=== PATIENT | female | born 1945 | race Caucasian/White ===

== ENCOUNTER 2019-04-08 20:03 | Emergency (ER) | payer MEDICARE, BC ==
[~2019-04-08] VITALS: Ht 149.9 cm; Wt 71.0 kg
[2019-04-08] MEDS ORDERED: TETanus/Pertussis (Acell)/Diphther VAC/PF (Tdap-Adult) 0.5ml syringe IM ONE (21:20)
[2019-04-08] MEDS ORDERED: LIDOcaine 1% w/epiNEPHrine 1:200,000 30ml vial IM ONE (21:20)
[2019-04-08 22:56] VITALS: BP 147/87
== END 2019-04-08 23:00 | disposition home or self-care (01) ==
LOC: ER 20:05
DX: S01.81XA Laceration without foreign body of other part of head, initial encounter (principal); Z86.73 Personal history of transient ischemic attack (TIA), and cerebral infarction without residual deficits; Z90.710 Acquired absence of both cervix and uterus; Z98.890 Other specified postprocedural states; W01.198A Fall on same level from slipping, tripping and stumbling with subsequent striking against other object, initial encounter; Y93.89 Activity, other specified; Y92.89 Other specified places as the place of occurrence of the external cause; Y99.8 Other external cause status
CPT/HCPCS: 12013; 70450; 90471; 90715; 99284; J3490; 12002

== ENCOUNTER 2019-12-30 12:57 | Emergency (ER) | payer MEDICARE, BC ==
[~2019-12-30] VITALS: Ht 149.9 cm; Wt 71.0 kg
[2019-12-30 13:05] VITALS: BP 117/68
[2019-12-30] MEDS ORDERED: ipratropium/albuterol 3ml nebule NEB ONE (14:35)
[2019-12-30] MEDS ORDERED: predniSONE 20 mg tablet PO ONE (14:35)
--- NOTE | 2019-12-30 14:40 | NUR ---
PAGE SENT FOR RT
[2019-12-30 14:56] LABS: BASOPHILS % (AUTO) 0.2 % (0-1); EOSINOPHILS # (AUTO) 0.2 X10'3 (0-0.9); EOSINOPHILS % (AUTO) 2.4 % (0-6); HEMOGLOBIN 13.3 g/dl (12.0-16.0); LYMPHOCYTES # (AUTO) 2.1 X10'3 (1.1-4.8); LYMPHOCYTES % (AUTO) 29.1 % (21-51); MEAN CORPUSCULAR HEMOGLOBIN 32.5 PG (27.0-31.0); MEAN CORPUSCULAR HGB CONC 33.3 g/dL (33.0-36.5); MEAN CORPUSCULAR VOLUME 97.4 FL (78-98); MEAN PLATELET VOLUME 8.1 FL (7.4-10.4); MONOCYTES # (AUTO) 0.7 X10'3 (0-0.9); MONOCYTES % (AUTO) 10.2 % (2-12); NEUTROPHILS # (AUTO) 4.3 X10'3 (1.8-7.7); NEUTROPHILS % (AUTO) 58.1 % (42-75); PLATELET COUNT 212 X10'3 (140-440); RED CELL DISTRIBUTION WIDTH 13.1 % (11.5-14.5); WHITE BLOOD COUNT 7.3 X10'3 (4.5-11.0)
[2019-12-30 15:10] LABS: PARTIAL THROMBOPLASTIN TIME 34 SECONDS (22-32)
[2019-12-30] MEDS ORDERED: ALBU8HFA PO (15:12)
[2019-12-30] MEDS ORDERED: GUAI-647 PO (15:12)
[2019-12-30] MEDS ORDERED: PRED20TA PO (15:12)
[2019-12-30 15:22] LABS: ALANINE AMINOTRANSFERASE 29 U/L (12-78); ALBUMIN 3.1 G/DL (3.4-5.0); ALBUMIN/GLOBULIN RATIO 0.8 (1.1-1.5); ALKALINE PHOSPHATASE 146 IU/L (46-116); ANION GAP 8 (8-16); ASPARTATE AMINO TRANSFERASE 29 U/L (10-37); BILIRUBIN,TOTAL 0.4 MG/DL (0.1-1.0); BLOOD UREA NITROGEN 16 MG/DL (7-18); BUN/CREATININE RATIO 15.1 (6.6-38.0); CALCIUM 8.8 MG/DL (8.5-10.1); CHLORIDE 106 MMOL/L (99-107); CREATININE 1.06 MG/DL (0.40-0.90); GLUCOSE 109 MG/DL (70-104); POTASSIUM 4.6 MMOL/L (3.5-5.1); SODIUM 140 MMOL/L (135-145); TOTAL CARBON DIOXIDE 25.8 MMOL/L (24-32); TOTAL PROTEIN 7.2 G/DL (6.4-8.2); eGFR 51 ML/MIN
== END 2019-12-30 15:38 | disposition home or self-care (01) ==
LOC: ER 12:58
DX: J45.901 Unspecified asthma with (acute) exacerbation (principal); Z86.73 Personal history of transient ischemic attack (TIA), and cerebral infarction without residual deficits; G47.30 Sleep apnea, unspecified; Z90.710 Acquired absence of both cervix and uterus; Z98.890 Other specified postprocedural states; Z79.899 Other long term (current) drug therapy
CPT/HCPCS: 36415; 71045; 80053; 83880; 85025; 85610; 85730; 94640; 99284; J7512; 94760

== ENCOUNTER 2021-02-16 09:15 | Day surgery (SDC) | payer MEDICARE, BC ==
[2021-02-09 15:40] LABS: BASOPHILS % (AUTO) 0.7 % (0-1); EOSINOPHILS # (AUTO) 0.2 X10'3 (0-0.9); EOSINOPHILS % (AUTO) 2.9 % (0-6); LYMPHOCYTES # (AUTO) 2.5 X10'3 (1.1-4.8); LYMPHOCYTES % (AUTO) 37.8 % (21-51); MEAN CORPUSCULAR HEMOGLOBIN 33.3 PG (27.0-31.0); MEAN CORPUSCULAR HGB CONC 32.9 g/dL (33.0-36.5); MEAN CORPUSCULAR VOLUME 101.3 FL (78-98); MEAN PLATELET VOLUME 7.5 FL (7.4-10.4); MONOCYTES # (AUTO) 0.7 X10'3 (0-0.9); MONOCYTES % (AUTO) 10.2 % (2-12); NEUTROPHILS # (AUTO) 3.2 X10'3 (1.8-7.7); NEUTROPHILS % (AUTO) 48.4 % (42-75); PRE OP HEMOGLOBIN 13.8 g/dL (12.0-16.0); PRE OP PLATELET COUNT 249 X10'3 (140-440); RED BLOOD COUNT 4.15 X10'6 (4.20-5.60); RED CELL DISTRIBUTION WIDTH 13.3 % (11.5-14.5)
[2021-02-09 15:56] LABS: ALBUMIN 3.7 G/DL (3.4-5.0); ALBUMIN/GLOBULIN RATIO 1.1 (1.1-1.5); ALKALINE PHOSPHATASE 101 IU/L (46-116); BLOOD UREA NITROGEN 16 MG/DL (7-18); BUN/CREATININE RATIO 14.2 (6.6-38.0); CALCIUM 9.5 MG/DL (8.5-10.1); CHLORIDE 105 MMOL/L (99-107); CREATININE 1.13 MG/DL (0.40-0.90); PRE OP ALT 29 U/L (30-65); PRE OP ANION GAP 7 (8-16); PRE OP AST 31 U/L (10-37); PRE OP BILIRUB, TOTAL 0.4 MG/DL (0.0-1.0); PRE OP GLUCOSE 94 MG/DL (70-104); PRE OP POTASSIUM 3.5 MMOL/L (3.4-5.1); PRE OP SODIUM 141 MMOL/L (135-145); TOTAL CARBON DIOXIDE 28.7 MMOL/L (24-32); TOTAL PROTEIN 7.2 G/DL (6.4-8.2); eGFR 47 ML/MIN
[2021-02-16] VITALS (7 sets, daily range): BP systolic 101–147; BP diastolic 59–114
[~2021-02-16] VITALS: Ht 147.3 cm; Wt 71.0 kg
[~2021-02-16 09:15] MED LIST: BUPR150T8 PO; CELE-193 PO; CHOL400T57 PO; EZET10TA6 PO; GABA600T13 PO; LISI40TA13 PO; MAGN400C3 PO; OMEG1CAP13 PO; OMEP20CA15 PO; QUET50TA22 PO; ROPI0.252 PO; SERT50TA PO; VITA100T PO; [UNRECOGNIZED DRUG - OTHER] PO; albuterol 2.5 MG/3 ML nebule NEB ONE; cefazolin/dext.iso 2gm/100ml 100 ML IV ONE; famotidine 20mg tablet PO ONE; ringers solution, lacted 1,000 ML IV SCH
[2021-02-16] MEDS ORDERED: LIDOcaine 0.5% (5mg/ml) 50ml vial ONE (10:35)
[2021-02-16] MEDS ORDERED: hydrALAZINE 20mg/ml inj. IV PRN (10:40)
[2021-02-16] MEDS ORDERED: ondansetron/PF 4mg/2ml inj IV PRN (10:40)
[2021-02-16] MEDS ORDERED: morphine 2 MG/ML inj. syringe IV PRN (10:40)
[2021-02-16] MEDS ORDERED: acetaminophen 1,000mg/100ml IV 100 ML IV PRN (10:40)
[2021-02-16] MEDS ORDERED: HYDROmorphone/PF 0.2 MG/ML SYRINGE IV PRN ×2 (10:40)
[2021-02-16] MEDS ORDERED: labetalol 20mg/4ml (5mg/ml) syringe IV PRN (10:40)
[2021-02-16] MEDS ORDERED: morphine 4 MG/ML inj SYRINge IV PRN (10:40)
[2021-02-16] MEDS ORDERED: proCHLORperazine 10 MG/2 ml inj IV PRN (10:40)
[2021-02-16] MEDS ORDERED: ringers solution, lacted 1,000 ML IV SCH (10:40)
[2021-02-16] MEDS ORDERED: meperidine/PF 25mg/ml syringe IV PRN (10:40)
[2021-02-16] MEDS ORDERED: fentaNYL/PF 50MCG/1 ML 2ML syringe ONE (10:51)
[2021-02-16] MEDS ORDERED: midazolam 1 mg/ML 2ml injection ONE (10:51)
[2021-02-16] MEDS ORDERED: propofol inj 20 ML IV ONE (11:14)
--- NOTE | 2021-02-16 11:54 | NUR ---
Received from OR via [facility] IN STABLE CONDITION, accompanied by Anesthesiologist and [employer] MAINTENANCE report given by Anesthesirichard. Addendum: 02/16/21 at 1209 by Lisa Steele RN Amended: Links added.
--- NOTE | 2021-02-16 12:54 | NUR ---
PATIENT DISCHARGED IN STABLE CONDITION AFTER WRITTEN AND VERBAL DISCHARGE INSTRUCTIONS. PATIENT GAVE VERBAL UNDERSTANDING OF INSTRUCTIONS GIVEN. PATIENT LEFT FACILITY IN A WHEELCHAIR WITH RN. Addendum: 02/16/21 at 1302 by Lisa Steele RN Amended: Links added.
== END 2021-02-16 12:54 | disposition home or self-care (01) ==
LOC: PAS 09:15
PROVIDERS: ATTEND Orthopaedic Surgery Hand Surgery
DX: M18.12 Unilateral primary osteoarthritis of first carpometacarpal joint, left hand (principal); J45.909 Unspecified asthma, uncomplicated; I10 Essential (primary) hypertension; F32.9 Major depressive disorder, single episode, unspecified; K21.9 Gastro-esophageal reflux disease without esophagitis; M19.072 Primary osteoarthritis, left ankle and foot; M19.021 Primary osteoarthritis, right elbow; M19.011 Primary osteoarthritis, right shoulder; M19.071 Primary osteoarthritis, right ankle and foot; G47.33 Obstructive sleep apnea (adult) (pediatric); Z85.828 Personal history of other malignant neoplasm of skin; Z86.73 Personal history of transient ischemic attack (TIA), and cerebral infarction without residual deficits; Z20.822 Contact with and (suspected) exposure to COVID-19; Z87.891 Personal history of nicotine dependence; Z90.710 Acquired absence of both cervix and uterus; Z98.890 Other specified postprocedural states; Z82.49 Family history of ischemic heart disease and other diseases of the circulatory system; Z80.1 Family history of malignant neoplasm of trachea, bronchus and lung
CPT/HCPCS: 25447; 36415; 80053; 85025; 93005; 94640; C1762; J2001; J2250; J2704; J3010; J7120; U0003; A4215; A4618; A7000

== ENCOUNTER 2021-07-24 09:11 | Emergency (ER) | payer MEDICARE, BC ==
[~2021-07-24] VITALS: Ht 147.3 cm; Wt 71.4 kg
[~2021-07-24 09:11] MED LIST changes: -QUET50TA22 PO; +QUET50TA24 PO; -albuterol 2.5 MG/3 ML nebule NEB ONE; -cefazolin/dext.iso 2gm/100ml 100 ML IV ONE; -famotidine 20mg tablet PO ONE; -ringers solution, lacted 1,000 ML IV SCH
[2021-07-24] MEDS ORDERED: LIDOcaine 1% 30ml preserv. free vial SQ ONE (12:10)
[2021-07-24] MEDS ORDERED: TETanus/Pertussis (Acell)/Diphther VAC/PF (Tdap-Adult) 0.5ml syringe IMVAC ONE (12:10)
[2021-07-24] MEDS ORDERED: ACET-3068 PO (13:05)
[2021-07-24 13:13] VITALS: BP 144/67
== END 2021-07-24 13:23 | disposition home or self-care (01) ==
LOC: ER 09:11
DX: S00.03XA Contusion of scalp, initial encounter (principal); S61.131A Puncture wound without foreign body of right thumb with damage to nail, initial encounter; S09.90XA Unspecified injury of head, initial encounter; J45.909 Unspecified asthma, uncomplicated; G47.39 Other sleep apnea; Z90.710 Acquired absence of both cervix and uterus; Z98.890 Other specified postprocedural states; Z79.899 Other long term (current) drug therapy; W19.XXXA Unspecified fall, initial encounter; Y93.89 Activity, other specified; Y92.89 Other specified places as the place of occurrence of the external cause; Y99.8 Other external cause status
CPT/HCPCS: 64450; 70450; 90471; 90715; 99284

== ENCOUNTER 2021-09-28 08:13 | Day surgery (SDC) | payer MEDICARE, BC ==
[2021-09-21 11:10] LABS: BASOPHILS % (AUTO) 0.5 % (0-1); EOSINOPHILS # (AUTO) 0.1 X10'3 (0-0.9); EOSINOPHILS % (AUTO) 1.7 % (0-6); LYMPHOCYTES # (AUTO) 2.7 X10'3 (1.1-4.8); LYMPHOCYTES % (AUTO) 31.5 % (21-51); MEAN CORPUSCULAR HEMOGLOBIN 33.7 PG (27.0-31.0); MEAN CORPUSCULAR HGB CONC 33.4 g/dL (33.0-36.5); MEAN CORPUSCULAR VOLUME 101.1 FL (78-98); MEAN PLATELET VOLUME 7.4 FL (7.4-10.4); MONOCYTES # (AUTO) 0.8 X10'3 (0-0.9); MONOCYTES % (AUTO) 9.7 % (2-12); NEUTROPHILS # (AUTO) 4.8 X10'3 (1.8-7.7); NEUTROPHILS % (AUTO) 56.6 % (42-75); PRE OP HEMATOCRIT 42.5 % (35.0-45.0); PRE OP HEMOGLOBIN 14.2 g/dL (12.0-16.0); PRE OP PLATELET COUNT 264 X10'3 (140-440); RED BLOOD COUNT 4.21 X10'6 (4.20-5.60)
[2021-09-21 11:27] LABS: ALBUMIN 3.6 G/DL (3.4-5.0); ALKALINE PHOSPHATASE 88 IU/L (46-116); BLOOD UREA NITROGEN 27 MG/DL (7-18); BUN/CREATININE RATIO 21.8 (6.6-38.0); CALCIUM 9.1 MG/DL (8.5-10.1); CHLORIDE 107 MMOL/L (99-107); CREATININE 1.24 MG/DL (0.40-0.90); PRE OP ALT 30 U/L (30-65); PRE OP ANION GAP 9 (8-16); PRE OP AST 22 U/L (10-37); PRE OP BILIRUB, TOTAL 0.6 MG/DL (0.0-1.0); PRE OP GLUCOSE 70 MG/DL (70-104); PRE OP POTASSIUM 4.5 MMOL/L (3.4-5.1); PRE OP SODIUM 143 MMOL/L (135-145); TOTAL CARBON DIOXIDE 26.7 MMOL/L (24-32); TOTAL PROTEIN 7.2 G/DL (6.4-8.2); eGFR 42 ML/MIN
[~2021-09-28] VITALS: Ht 149.9 cm; Wt 73.0 kg
[2021-09-28] VITALS (9 sets, daily range): BP systolic 114–157; BP diastolic 52–90
[~2021-09-28 08:13] MED LIST changes: +BUPIVAcaine 0.5% inj/PF 30 ML ONE; +albuterol 2.5 MG/3 ML nebule NEB ONE; +cefazolin/dext.iso 2gm/50ml IV ONE; +famotidine 20mg tablet PO ONE; +ringers solution, lacted 1,000 ML IV SCH
[2021-09-28] MEDS ORDERED: LIDOcaine 0.5% (5mg/ml) 50ml vial ONE (09:43)
[2021-09-28] MEDS ORDERED: fentaNYL/PF 50MCG/1 ML 2ML syringe ONE (10:42)
[2021-09-28] MEDS ORDERED: midazolam 1 mg/ML 2ml injection ONE (10:43)
[2021-09-28] MEDS ORDERED: propofol inj 20 ML IV ONE (10:44)
[2021-09-28] MEDS ORDERED: ringers solution, lacted 1,000 ML IV SCH (10:50)
[2021-09-28] MEDS ORDERED: ondansetron/PF 4mg/2ml inj IV PRN (10:50)
[2021-09-28] MEDS ORDERED: morphine 2 MG/ML inj. syringe IV PRN (10:50)
[2021-09-28] MEDS ORDERED: HYDROmorphone/PF 0.2 MG/ML SYRINGE IV PRN (10:50)
[2021-09-28] MEDS ORDERED: acetaminophen 1,000mg/100ml IV 100 ML IV ONE (11:58)
--- NOTE | 2021-09-28 12:05 | NUR ---
Received from OR via [facility] , accompanied by Anesthesiologist PATRICIA and report given by Anesthesiolgist. CO SHOULDER PAIN, VSS, IV PATENT. MED WITH TYLENOL BY DR. GOMEZ. WHEN i ASKED HER WHAT NUMBER HER PAIN WAS SHE SAID IT DOESN'T HURT. aDDITIONAL MED NOT GIVEN.
--- NOTE | 2021-09-28 13:05 | NUR ---
Doing very well. Her shoulder pain is subsided. moving fingers, is more awake now. dsg continues cdi.
--- NOTE | 2021-09-28 13:25 | NUR ---
Dc to home. no pain, vss, iv out with cannula intact. dressing continues cdi. given discharge instructions, states understands. Dr. Day took care of pain med prescription already. son driving.
== END 2021-09-28 13:25 | disposition home or self-care (01) ==
LOC: PAS 08:13
PROVIDERS: ATTEND Orthopaedic Surgery Hand Surgery
DX: T84.84XA Pain due to internal orthopedic prosthetic devices, implants and grafts, initial encounter (principal); M18.0 Bilateral primary osteoarthritis of first carpometacarpal joints; M16.11 Unilateral primary osteoarthritis, right hip; G47.33 Obstructive sleep apnea (adult) (pediatric); I10 Essential (primary) hypertension; J45.909 Unspecified asthma, uncomplicated; K21.9 Gastro-esophageal reflux disease without esophagitis; M19.90 Unspecified osteoarthritis, unspecified site; F32.9 Major depressive disorder, single episode, unspecified; Z87.891 Personal history of nicotine dependence; Z86.73 Personal history of transient ischemic attack (TIA), and cerebral infarction without residual deficits; Z20.822 Contact with and (suspected) exposure to COVID-19; Z85.828 Personal history of other malignant neoplasm of skin; Z79.899 Other long term (current) drug therapy; Z90.49 Acquired absence of other specified parts of digestive tract; Z90.710 Acquired absence of both cervix and uterus; Z98.890 Other specified postprocedural states; Y83.8 Other surgical procedures as the cause of abnormal reaction of the patient, or of later complication, without mention of misadventure at the time of the procedure; Y92.89 Other specified places as the place of occurrence of the external cause
CPT/HCPCS: 25447; 36415; 80053; 82948; 85025; C1713; J0131; J2001; J2250; J2704; J3010; U0003; U0005; Z7506; Z7508; Z7512; A4215; A6449; A7000; J0690; J3490; J7120; S0020

== ENCOUNTER 2022-09-14 05:46 | Inpatient (IN) | payer MEDICARE, BC ==
[2022-09-06 12:23] LABS: BASOPHILS % (AUTO) 0.6 % (0-1); EOSINOPHILS # (AUTO) 0.3 X10'3 (0-0.9); EOSINOPHILS % (AUTO) 4.3 % (0-6); LYMPHOCYTES # (AUTO) 2.7 X10'3 (1.1-4.8); LYMPHOCYTES % (AUTO) 41.8 % (21-51); MEAN CORPUSCULAR HEMOGLOBIN 33.3 PG (27.0-31.0); MEAN CORPUSCULAR HGB CONC 33.8 g/dL (33.0-36.5); MEAN CORPUSCULAR VOLUME 98.7 FL (78-98); MEAN PLATELET VOLUME 8.1 FL (7.4-10.4); MONOCYTES # (AUTO) 0.6 X10'3 (0-0.9); MONOCYTES % (AUTO) 9.8 % (2-12); NEUTROPHILS # (AUTO) 2.8 X10'3 (1.8-7.7); NEUTROPHILS % (AUTO) 43.5 % (42-75); PRE OP HEMATOCRIT 40.3 % (35.0-45.0); PRE OP HEMOGLOBIN 13.6 g/dL (12.0-16.0); PRE OP PLATELET COUNT 213 X10'3 (140-440); RED BLOOD COUNT 4.08 X10'6 (4.20-5.60); RED CELL DISTRIBUTION WIDTH 12.8 % (11.5-14.5)
[2022-09-06 12:35] LABS: ALBUMIN 3.8 G/DL (3.4-5.0); ALBUMIN/GLOBULIN RATIO 1.1 (1.1-1.5); ALKALINE PHOSPHATASE 83 IU/L (46-116); BLOOD UREA NITROGEN 35 MG/DL (7-18); BUN/CREATININE RATIO 34.7 (6.6-38.0); CALCIUM 9.8 MG/DL (8.5-10.1); CHLORIDE 104 MMOL/L (99-107); CREATININE 1.01 MG/DL (0.40-0.90); PRE OP ALT 26 U/L (30-65); PRE OP ANION GAP 7 (8-16); PRE OP AST 28 U/L (10-37); PRE OP BILIRUB, TOTAL 0.5 MG/DL (0.0-1.0); PRE OP GLUCOSE 85 MG/DL (70-104); PRE OP POTASSIUM 4.3 MMOL/L (3.4-5.1); PRE OP SODIUM 139 MMOL/L (135-145); TOTAL CARBON DIOXIDE 28.4 MMOL/L (24-32); TOTAL PROTEIN 7.3 G/DL (6.4-8.2); eGFR 53 ML/MIN
[~2022-09-14] VITALS: Ht 147.3 cm; Wt 66.5 kg
[2022-09-14] VITALS (17 sets, daily range): BP systolic 92–155; BP diastolic 48–104
[~2022-09-14 05:46] MED LIST changes: -BUPIVAcaine 0.5% inj/PF 30 ML ONE; -CELE-193 PO; +CELE-85 PO; +CRAN500C4 PO; +LACT1CAP26 PO; +MEMA10TA PO; +OMEG-5 PO; -OMEG1CAP13 PO; +SERT200C PO; -SERT50TA PO; -[UNRECOGNIZED DRUG - OTHER] PO; -albuterol 2.5 MG/3 ML nebule NEB ONE; +ceFAZolin inj. 2,000 MG in dextrose 5%-water 100 ML IV ONE; -cefazolin/dext.iso 2gm/50ml IV ONE; +tranexamic acid 650mg tablet PO ONE; +vancomycin/NS 1 GM in NS 250 ML IV ONE
[2022-09-14] MEDS ORDERED: ROPIVAcaine 0.5% (5mg/ml) 30ml vial ONE ×2 (05:52→07:43)
[2022-09-14] MEDS ORDERED: ketorolac trometh. 30mg/ml inj. ONE (05:52)
[2022-09-14] MEDS ORDERED: MIDAZolam 1 MG/ML 5ML VIAL ONE (08:47)
[2022-09-14] MEDS ORDERED: FENTANYL CITRATE/PF 50 MCG/1 ML VIAL ONE (08:47)
[2022-09-14] MEDS ORDERED: propofol inj 20 ML IV ONE (08:51)
[2022-09-14] MEDS ORDERED: morphine 2 MG/ML inj. syringe IV PRN (09:35)
[2022-09-14] MEDS ORDERED: proCHLORperazine 10 MG/2 ml inj IV PRN (09:35)
[2022-09-14] MEDS ORDERED: meperidine/PF 25mg/ml syringe IV PRN ×3 (09:35)
[2022-09-14] MEDS ORDERED: ondansetron/PF 4mg/2ml inj IV PRN ×2 (09:35→10:35)
[2022-09-14] MEDS ORDERED: ringers solution, lacted 1,000 ML IV SCH (09:35)
[2022-09-14] MEDS ORDERED: morphine 4 MG/ML inj SYRINge IV PRN (09:35)
[2022-09-14] MEDS ORDERED: ROPIVAcaine 0.2%/PF PUMP/bolus 545 ML INTERSCALE SCH (09:44)
[2022-09-14] MEDS ORDERED: ROPIVAcaine 0.2% (10 MG/5 ML) BOLUS INJECTION INTERSCALE PRN (09:45)
[2022-09-14] MEDS ORDERED: HYDROmorphone 1 mg/ml syringe IV PRN (10:35)
[2022-09-14] MEDS ORDERED: bisacodyl 10mg suppository rectal RC PRN (10:35)
[2022-09-14] MEDS ORDERED: magnesium hydroxide 30ml (MOM) UD suspension PO PRN (10:35)
[2022-09-14] MEDS ORDERED: oxyCODONE IR 5mg (immed. release) tablet PO PRN ×2 (10:35)
[2022-09-14] MEDS ORDERED: naloxone 0.4 mg/ml inj IV PRN (10:35)
[2022-09-14] MEDS ORDERED: HYDROcodone/acetaminophen 10/325mg tab PO PRN ×2 (10:35)
[2022-09-14] MEDS ORDERED: diphenhydrAMINE 25mg capsule PO PRN ×2 (10:35)
[2022-09-14] MEDS ORDERED: acetaminophen 325mg tablet PO PRN (10:35)
[2022-09-14] MEDS ORDERED: HYDROmorphone inj. 0.5 MG/0.5 ML DISP.SYRIN IV PRN (10:35)
--- NOTE | 2022-09-14 10:41 | NUR ---
Received from OR via [facility] , accompanied by Anesthesiologist DR ROMERO and report given by Anesthesiolgist. PT PRESENTS WITH PIV 18G LEFT WRIST, RIGHT SHOULDER DRESSING WITH POWDER PACK CDI, WITH ON-Q READY. VSS. Addendum: 09/14/22 at 1050 by Olena Hanna RN, RN Amended: Links added.
--- NOTE | 2022-09-14 15:01 | NUR ---
Report called to receiving nurse LEONARDO VIZCARRA. Transferred via [facility]. PT TO ROOM 346B BY ANDRES VIZCARRA. BED IN LOW LOCKED POSITION, CALL LIGHT IN REACH. PT CPAP AND ONE PT BELONGING BAG TO ROOM 346B. Special Issues communicated to receiving nurse. Addendum: 09/14/22 at 1505 by Olena Hanna RN RN Amended: Links added.
--- NOTE | 2022-09-14 15:23 | NUR ---
Received patient to room 346B via bed accompanied by x1 staff. Patient alert and oriented and denies any pain or discomfort at this time. Patient with right arm sling on, right shoulder dressing cdi with eduardo powder pack on, SCD's on. Personal belongings in bag at bedside and patient's home cpap in drawer. Patient oriented to room and call light. Call light placed witin patient's reach, bed low and locked.
[2022-09-14] MEDS: acetaminophen 325mg tablet PO SCH ×2 (15:46→19:59)
[2022-09-14] MEDS: ceFAZolin/D5W- 1GM premix 50 ML IV SCH (16:21)
[2022-09-14] MEDS: potassium cl 20mEq in 1/2 NS 1,000 ML IV SCH (18:35)
--- NOTE | 2022-09-14 18:40 | NUR ---
Problems reprioritized. Patient report given, questions answered & plan of care reviewed with ZACKERY Burton.
[2022-09-14] MEDS: memantine 5mg tablet PO SCH (20:00)
[2022-09-14] MEDS ORDERED: vancomycin/NS 1 GM ADD-VANTAGE 250 ML IV SCH (20:00)
[2022-09-14] MEDS ORDERED: QUEtiapine 25mg tablet PO SCH (21:00)
[2022-09-14] MEDS ORDERED: ROPINIRole 0.25mg tablet PO SCH (21:00)
[2022-09-14] MEDS ORDERED: gabapentin 300mg capsule PO SCH (21:00)
[2022-09-14] MEDS ORDERED: sennosides 8.6mg tablet PO SCH (21:00)
[2022-09-14] MEDS ORDERED: OMEGA-3/DHA/EPA/FISH OIL 1 EACH CAPSULE.DR PO SCH (21:00)
[2022-09-14] MEDS ORDERED: [UNRECOGNIZED DRUG - OTHER] PO SCH (21:00)
--- NOTE | 2022-09-14 22:55 | NUR ---
Student documentation: I have reviewed interventions, assessments performed and documented by Viky CAREY.Student Medication Administration: For this medication-pass time frame, all medication were reviewed, dispensed, administered and documented per hospital policy by Viky CAREY.
[2022-09-15] MEDS: potassium cl 20mEq in 1/2 NS 1,000 ML IV SCH ×3 (02:35→10:35)
[2022-09-15] MEDS: ceFAZolin/D5W- 1GM premix 50 ML IV SCH (02:42)
[2022-09-15] MEDS: acetaminophen 325mg tablet PO SCH ×2 (02:42→08:05)
[2022-09-15 06:09] LABS: ANION GAP 6 (8-16); CHLORIDE 109 MMOL/L (99-107); POTASSIUM 4.2 MMOL/L (3.5-5.1); SODIUM 139 MMOL/L (135-145)
[2022-09-15 06:11] LABS: BASOPHILS # (AUTO) 0.1 X10'3 (0-0.2); BASOPHILS % (AUTO) 0.8 % (0-1); EOSINOPHILS # (AUTO) 0.3 X10'3 (0-0.9); EOSINOPHILS % (AUTO) 4.3 % (0-6); HEMATOCRIT 34.9 % (35.0-45.0); HEMOGLOBIN 11.6 g/dl (12.0-16.0); LYMPHOCYTES % (AUTO) 29.9 % (21-51); MEAN CORPUSCULAR HEMOGLOBIN 33.4 PG (27.0-31.0); MEAN CORPUSCULAR HGB CONC 33.2 g/dL (33.0-36.5); MEAN CORPUSCULAR VOLUME 100.7 FL (78-98); MEAN PLATELET VOLUME 8.5 FL (7.4-10.4); MONOCYTES # (AUTO) 0.8 X10'3 (0-0.9); MONOCYTES % (AUTO) 12.9 % (2-12); NEUTROPHILS # (AUTO) 3.4 X10'3 (1.8-7.7); NEUTROPHILS % (AUTO) 52.1 % (42-75); PLATELET COUNT 151 X10'3 (140-440); RED BLOOD COUNT 3.46 X10'6 (4.20-5.60); RED CELL DISTRIBUTION WIDTH 13.1 % (11.5-14.5); WHITE BLOOD COUNT 6.6 X10'3 (4.5-11.0)
--- NOTE | 2022-09-15 06:34 | NUR ---
Patient in room [facility]. I have received report from ZACKERY Burton and had the opportunity to ask questions and assume patient care.
[2022-09-15 06:39] VITALS: BP 94/50
[2022-09-15 06:41] VITALS: BP 118/53
[2022-09-15 07:01] VITALS: BP 118/53
[2022-09-15] MEDS ORDERED: lisinopril 20mg tablet PO SCH (08:00)
[2022-09-15] MEDS ORDERED: sertraline 50mg tablet PO SCH (08:00)
[2022-09-15] MEDS ORDERED: ezetimibe 10mg tablet PO SCH (08:00)
[2022-09-15] MEDS ORDERED: celeCOXIB 100mg capsule PO SCH (08:00)
[2022-09-15] MEDS ORDERED: pantoprazole 40mg Tablet.DR PO SCH (08:00)
[2022-09-15] MEDS ORDERED: cholecalciferol (vitamin D3) 1,000 unit (25mcg) tablet PO SCH (08:00)
[2022-09-15] MEDS ORDERED: [UNRECOGNIZED DRUG - REMARK] PO SCH (08:00)
[2022-09-15] MEDS ORDERED: buPROPion SR 150mg tablet PO SCH (08:00)
[2022-09-15] MEDS ORDERED: non-formulary drug (Cranberry Extract (Cranberry) 1 CAP) PO SCH (08:00)
[2022-09-15] MEDS: memantine 5mg tablet PO SCH (08:05)
[2022-09-15] MEDS ORDERED: aspirin 325mg tablet PO SCH (08:30)
--- NOTE | 2022-09-15 11:05 | NUR ---
Joint surgery consult: Pt s/p R shoulder surgery this admit per EMR. Pt seen by ISMAEL for written/verbal high protein diet ed w/ RD contact information provided. ISMAEL encouraged pt to contact dietitian's office if further questions/concerns. Addendum: 09/15/22 at [address] Amended: Links added.
[2022-09-15 11:41] VITALS: BP 102/49
--- NOTE | 2022-09-15 12:41 | NUR ---
Patient is alert and oriented in no apparent acute distress with no complaints. Discussed with patient discharge instructions and patient stated no questions. Patient dressing cdi to right shoulder and ONQ ball dressing CDI. Shabbir powder packs given to patient to take home. Patient ready for dc but wanting to finish lunch first and states "son is on the way to get me now."
--- NOTE | 2022-09-15 13:03 | NUR ---
Patient dc'd with all personal belongings escorted out in wheelchair accompanied by x1 staff.
[2022-09-16] MEDS ORDERED: acetaminophen 325mg tablet PO PRN (10:35)
== END 2022-09-15 13:00 | disposition home or self-care (01) | DRG 483 ==
LOC: PAS IN 05:46 → SUR 3N 15:06
PROVIDERS: ADMIT Orthopaedic Surgery; ATTEND Orthopaedic Surgery
PROC: 0LS30ZZ Reposition Right Upper Arm Tendon, Open Approach (ICD-10-PCS; 2022-09-14)
PROC: 3E0T3BZ Introduction of Anesthetic Agent into Peripheral Nerves and Plexi, Percutaneous Approach (ICD-10-PCS; 2022-09-14)
PROC: 0RRJ00Z Replacement of Right Shoulder Joint with Reverse Ball and Socket Synthetic Substitute, Open Approach (ICD-10-PCS; principal; 2022-09-14 08:41)
DX: M19.011 Primary osteoarthritis, right shoulder (principal); D62 Acute posthemorrhagic anemia; M65.811 Other synovitis and tenosynovitis, right shoulder; M75.121 Complete rotator cuff tear or rupture of right shoulder, not specified as traumatic; M75.21 Bicipital tendinitis, right shoulder; Z79.899 Other long term (current) drug therapy
CPT/HCPCS: 36415; 80051; 80053; 82948; 85025; 87081; 97110; 97116; 97161; 97530; A4615; A4618; A7000; C1776; G0378; J0690; J1885; J2250; J2704; J2795; J3010; J3370; J3480; J3490; J7060; J7120

== ENCOUNTER 2023-01-27 10:47 | Emergency (ER) | payer MEDICARE ==
[~2023-01-27] VITALS: Ht 147.3 cm; Wt 64.5 kg
[~2023-01-27 10:47] MED LIST changes: -ceFAZolin inj. 2,000 MG in dextrose 5%-water 100 ML IV ONE; -famotidine 20mg tablet PO ONE; -ringers solution, lacted 1,000 ML IV SCH; -tranexamic acid 650mg tablet PO ONE; -vancomycin/NS 1 GM in NS 250 ML IV ONE
[2023-01-27] MEDS ORDERED: HYDROcodone/acetaminophen 5mg/325mg tablet PO ONE (13:30)
[2023-01-27] MEDS ORDERED: ondansetron 4mg rapidly disintigrating tab PO ONE (13:30)
[2023-01-27] MEDS ORDERED: orphenadrine citrate 60mg/2ml inj. IM ONE (14:50)
[2023-01-27] MEDS ORDERED: diazepam 5mg tablet PO ONE (15:00)
[2023-01-27] MEDS ORDERED: ORPH100T2 PO (15:05)
[2023-01-27 15:22] VITALS: BP 121/59
== END 2023-01-27 15:25 | disposition home or self-care (01) ==
LOC: ER 10:48
DX: S00.03XA Contusion of scalp, initial encounter (principal); J45.909 Unspecified asthma, uncomplicated; Z90.49 Acquired absence of other specified parts of digestive tract; Z79.899 Other long term (current) drug therapy; Z79.1 Long term (current) use of non-steroidal anti-inflammatories (NSAID); Z79.2 Long term (current) use of antibiotics; W18.39XA Other fall on same level, initial encounter; Y93.89 Activity, other specified; Y92.89 Other specified places as the place of occurrence of the external cause; Y99.8 Other external cause status
CPT/HCPCS: 70450; 72125; 99284

== ENCOUNTER 2024-11-25 16:40 | Emergency (ER) | payer OTHER, MEDICARE ==
[~2024-11-25] VITALS: Ht 147.3 cm; Wt 69.3 kg
[~2024-11-25 16:40] MED LIST changes: +CELE-127 PO; -CELE-85 PO; +GABA-1405 PO; -GABA600T13 PO; +ORPH100T4 PO
[2024-11-25 16:49] VITALS: BP 149/60; PULSE 89; TEMP 98.5; O2SAT 97
[2024-11-25 17:26] VITALS: RESP 16
== END 2024-11-25 18:36 | disposition home or self-care (01) ==
LOC: ER 16:40
DX: M54.89 Other dorsalgia (principal); M25.512 Pain in left shoulder; M54.2 Cervicalgia; J45.909 Unspecified asthma, uncomplicated; G47.30 Sleep apnea, unspecified; Z86.73 Personal history of transient ischemic attack (TIA), and cerebral infarction without residual deficits; Z90.710 Acquired absence of both cervix and uterus; V89.2XXA Person injured in unspecified motor-vehicle accident, traffic, initial encounter; Y93.89 Activity, other specified; Y92.89 Other specified places as the place of occurrence of the external cause; Y99.8 Other external cause status
CPT/HCPCS: 99282